=== PATIENT | female | born 1995 | race Caucasian/White ===

== ENCOUNTER 2017-06-06 06:00 | Emergency (ER) | payer MEDICAID ==
[~2017-06-06] VITALS: Ht 157.5 cm; Wt 49.0 kg
[2017-06-06 06:04] VITALS: BP 104/63
== END 2017-06-06 06:19 | disposition home or self-care (01) ==
LOC: M.ERS 06:00
DX: S21.211A Laceration without foreign body of right back wall of thorax without penetration into thoracic cavity, initial encounter (principal); W26.8XXA Contact with other sharp object(s), not elsewhere classified, initial encounter; Y93.E1 Activity, personal bathing and showering; Y92.89 Other specified places as the place of occurrence of the external cause; Y99.8 Other external cause status